=== PATIENT | female | born 1970 | race American Indian/Alaskan Native ===

== ENCOUNTER 2022-04-18 11:17 | Outpatient (CLI) | payer OTHER ==
--- NOTE | 2022-04-18 15:00 | Ultrasound Report ---
LEFT DIGITAL DIAGNOSTIC MAMMOGRAM CONVENTIONAL, 04/18/2022 LEFT LIMITED BREAST ULTRASOUND CLINICAL INFORMATION / INDICATION: Abnormal screening mammogram TECHNIQUE: Digital left mammographic imaging was performed. Spot compression views were obtained. Mathew brooke ultrasound was performed. COMPARISON: Mammography 02/09/2022, 09/20/2018, 01/04/2017, 11/16/2016 FINDINGS: Breast Density: The breasts are heterogeneously dense, which may obscure small masses. MAMMOGRAPHIC FINDINGS: Density in question improves with additional views, appearance similar to olde r studies. ULTRASOUND FINDINGS: Targeted ultrasound evaluation was performed of the area of interest. No abnorma lities are seen in the area of radiographic concern. IMPRESSION: No mammographic or sonographic evidence of malignancy. Follow up recommendation: Routine yearly screening mammogram. BI-RADS Category 1: NEGATIVE. A "normal" or negative report should not discourage follow up or biopsy of a clinically significant f inding. A written summary of these findings will be mailed to the patient. The patient will be entered into a mammography reporting system which will generate a reminder letter for the patient's next appointmen t at the appropriate interval. According to the [employer], yearly mammograms are recommended starting at age 40 and continuing as long as a woman is in good health. Breast MRI is recommended for women with an miguel roximately 20-25% or greater lifetime risk of breast cancer, including women with a strong family his tory of breast or ovarian cancer and women who have been treated for Hodgkin's disease. Signer Name: Ken Montano MD Signed: 04/18/2022 12:58 PM Workstation Name: [id number]
== END 2022-04-18 11:18 | disposition home or self-care (01) ==
LOC: MAMMO 11:17
DX: R92.8 Other abnormal and inconclusive findings on diagnostic imaging of breast (principal)